=== PATIENT | male | born 1960 | race Caucasian/White ===

== ENCOUNTER 2017-03-10 11:21 | Day surgery (SDC) | payer BC, OTHER ==
[2017-03-06 17:04] LABS: HEMATOCRIT 45.7 % (40.0-51.0); HEMOGLOBIN 15.4 g/dL (13.6-17.8)
[2017-03-06 17:38] LABS: ALBUMIN 3.9 G/DL (3.5-5.0); ALKALINE PHOSPHATASE 156 U/L (45-117); BUN (BLOOD UREA NITROGEN) 6 MG/DL (6-23); CALCIUM, SERUM 9.5 MG/DL (8.5-10.4); CHLORIDE, SERUM 103 MMOL/L (96-112); CO2 (CARBON DIOXIDE) 31 MMOL/L (24-34); CREATININE 0.77 MG/DL (0.70-1.30); DIRECT BILIRUBIN 0.1 MG/DL (0.0-0.4); GFR AFRICAN AMERICAN 117 ML/MIN (>=60); GFR NON AFRICAN AMERICAN 101 ML/MIN (>=60); GLUCOSE, SERUM 72 MG/DL (60-99); INDIRECT BILIRUBIN(NOT ORDER) 0.3 MG/DL (0.1-0.9); POTASSIUM, SERUM 4.7 MMOL/L (3.5-5.3); SGOT(AST) 9 U/L (5-40); SGPT(ALT) 14 U/L (5-65); SODIUM, SERUM 142 MMOL/L (135-148); TOTAL BILIRUBIN 0.4 MG/DL (0-1.2)
--- NOTE | ~2017-03-10 | OP ---
[facility] [address] [place]. [address] NAME: DIANNA LOPES : 58 STATUS : [facility]#: [id number] AGE: 56 ADM/REG DATE : 03/10/17 MR#: [id number] REPORT SERV DATE: 03/10/17 DICTATED BY: DON DOVE DATE: 03/10/17 REPORT STATUS : Draft TRANSCRIBED BY: MODL DATE: 03/10/17 DATE OF PROCEDURE: 03/10/2017 PREOPERATIVE DIAGNOSIS: Right colon polyp. POSTOPERATIVE DIAGNOSES: 1. Right colon polyp. 2. Cecal polyp at the appendiceal orifice. 3. Midtransverse colon polyp. 4. Descending colon polyp. 5. Sigmoid colon polyp. PROCEDURES PERFORMED: 1. Colonoscopy to cecum. 2. Polypectomy x5 as above. SURGEON: Johnny Dove M.D. FELLOW DOCTOR: Alex Cantrell MD ANESTHESIA: MAC anesthesia. ESTIMATED BLOOD LOSS: 5 mL. IV FLUIDS: 600 mL. SPECIMENS: As above. COMPLICATIONS: None. INDICATIONS FOR PROCEDURE: This is a 56-year-old male who was found to have a large right- sided colon polyp for which General Surgery consultation was requested. The patient was offered repeat colonoscopy for second attempt with either submucosal dissection of polypectomy. Risks, benefits, and alternatives were explained to the patient including missed polyp, perforation requiring operation, sepsis, damage to surrounding structures, bleeding, infection, anesthesia risks. He understood these and consented to undergo colonoscopy with mass resection. DESCRIPTION OF PROCEDURE: The patient was brought to the operating room and placed in the left lateral decubitus position where MAC anesthesia was induced. A preprocedure time-out was called and agreed upon. Rectal exam did not reveal any abnormalities on palpation up to the anorectal ring. The adult Olympus colonoscope was advanced transanally to the cecum with modest difficulty due to a tortuous sigmoid colon. Cecum was identified by confirmation of the appendiceal orifice, the cecal straps and ileocecal valve. His BPPS score was a 6 due to moderate stool amount in the sigmoid, transverse, and descending colon as well as the cecum. Attempts were made to irrigate the majority of this away, however, it [facility] [address] [place]. [address] NAME: DIANNA LOPES : 58 STATUS : [facility]#: [id number] AGE: 56 ADM/REG DATE : 03/10/17 MR#: [id number] REPORT SERV DATE: 03/10/17 DICTATED BY: DON DOVE DATE: 03/10/17 REPORT STATUS : Draft TRANSCRIBED BY: MODL DATE: 03/10/17 was difficult and time prohibitive. At the mouth of the appendiceal orifice, there was a small 1 cm pedunculated polyp, which was taken with hot snare biopsy using a hot snare biopsy tool. The rest of the cecum was without abnormality. At the mid ascending colon, was the previously identified and tattooed large 3.5 cm pedunculated polyp. Both size was large, its stalk was rather diminutive, and a snare easily passed over this polyp. It was taken using hot snare biopsy tool. Hemostasis was adequate. Biopsy specimen retrieval was complete as it was pulled completely out transanally due to its size. The scope was then placed transanally and readvanced to that point where further withdrawal of the scope took greater than 30 minutes due to multiple polypectomies. The first was a 1 to 1.5 cm polyp in the proximal to mid transverse colon. Retrieval was complete. No other abnormalities or mucosal lesions in the transverse colon. Descending colon revealed a large 1.5 cm to 2 cm pedunculated polyp. This was taken using hot snare biopsy tool. Hemostasis was adequate and retrieval was complete. An additional roughly 8 mm to 1 cm sessile polyp was found in the sigmoid colon at roughly 25 cm. This was taken using hot snare biopsy tool, retrieval was complete. There were no rectal mucosal abnormalities or lesions. The patient tolerated the procedure well and was transferred to the PACU for routine postoperative care. Dr. Dove was present for the duration of the procedure. DICTATED BY: MD RICARDO Ortega/RANI Johnny Dove M.D. / [id number] CC: Ed Weber NP
[~2017-03-10 11:21] MED LIST: CALTRA600D PO; D100 PO; KEPPRA1000 MG PO; LIPITOR20 PO; SEROQUEL XR300 MG PO; VITAMIN D31000 UNIT PO
== END 2017-03-10 16:29 | disposition home or self-care (01) ==
LOC: SDC 11:21
PROVIDERS: Colon & Rectal Surgery
PROC: 0DBL8ZZ Excision of Transverse Colon, Via Natural or Artificial Opening Endoscopic (ICD-10-PCS; 2017-03-10)
PROC: 0DBN8ZZ Excision of Sigmoid Colon, Via Natural or Artificial Opening Endoscopic (ICD-10-PCS; 2017-03-10)
PROC: 0DBH8ZZ Excision of Cecum, Via Natural or Artificial Opening Endoscopic (ICD-10-PCS; 2017-03-10)
PROC: 0DBM8ZZ Excision of Descending Colon, Via Natural or Artificial Opening Endoscopic (ICD-10-PCS; principal; 2017-03-10 13:15)
DX: D12.3 Benign neoplasm of transverse colon (principal); D12.5 Benign neoplasm of sigmoid colon; D12.4 Benign neoplasm of descending colon; F17.210 Nicotine dependence, cigarettes, uncomplicated; G40.909 Epilepsy, unspecified, not intractable, without status epilepticus; E78.5 Hyperlipidemia, unspecified; D12.6 Benign neoplasm of colon, unspecified; Z86.010 Personal history of colon polyps; Z98.890 Other specified postprocedural states; Z88.8 Allergy status to other drugs, medicaments and biological substances; Z79.899 Other long term (current) drug therapy
CPT/HCPCS: 80048; 80076; 85014; 85018; 88305; 93005; J1580; J2250; J2370; J3010